=== PATIENT | male | born 1940 | race Caucasian/White ===

== ENCOUNTER 2020-12-20 09:32 | Outpatient (CLI) | payer MEDICARE ==
[~2020-12-20 09:32] MED LIST: AMOX500T PO; ASPI-963 PO; ATOR40TA78 PO; AZIT250T89 PO; ENAL20TA9 PO; LEVO150T5 PO; UBID100T5 PO
== END 2020-12-20 23:59 | disposition home or self-care (01) ==
LOC: RAD 09:32
PROVIDERS: ATTEND Internal Medicine
DX: J98.4 Other disorders of lung (principal); R05 Cough
CPT/HCPCS: 71046